=== PATIENT | male | born 1940 | race Caucasian/White ===

== ENCOUNTER 2018-07-14 23:22 | Inpatient (IN) | payer OTHER ==
[~2018-07-14] VITALS: Ht 154.9 cm; Wt 58.1 kg
[~2018-07-14 23:22] MED LIST: BENA40TA54 PO; HYDR12.53 PO; OMEP20CA16 PO
[2018-07-15] VITALS (12 sets, daily range): BP systolic 101–144; BP diastolic 52–70; PULSE 70–93; RESP 18–20; Ht 154.9 cm; Wt 58.1 kg
[2018-07-15] MEDS ORDERED: ONDANSETRON 4 MG INJ IV STA (00:34)
[2018-07-15] MEDS ORDERED: hydrALAzine 20 MG INJ IV ONE (01:00)
[2018-07-15] MEDS ORDERED: ACETAMINOPHEN 325 MG TAB PO PRN (01:30)
[2018-07-15] MEDS ORDERED: ONDANSETRON 4 MG INJ IV PRN (01:30)
[2018-07-15] MEDS ORDERED: DOCUSATE SODIUM 100 MG CAP PO PRN (01:30)
[2018-07-15] MEDS ORDERED: BISACODYL (EC) 5 MG TAB PO PRN (01:30)
[2018-07-15] MEDS ORDERED: NACL 0.9% 3 ML SYG IV SCH (01:30)
[2018-07-15] MEDS ORDERED: hydrALAzine 20 MG INJ IV PRN (01:30)
--- NOTE | 2018-07-15 01:32 | HP ---
Date/Time of Note Date/Time of Note DATE: 07/15/18 TIME: 01:32 Assessment/Plan VTE Prophylaxis SCD applied (from Nsg): Yes Pharmacological prophylaxis: NA/contraindicated Pharm contraindication: low risk/ambulating Lines/Catheters IV Catheter Type (from Nrsg): Saline Lock Assessment/Plan Hospital Course This is a 77-year-old male being admitted to the telemetry floor for: #1 hypertensive urgency: Patient's blood pressure upon admission was in systolic above 200s. Patient was given IV hydralazine 20 mg x1 which did result in improvement of the blood pressure. Goal is to gradually lower the blood pressure over the next 24 hours. We will adjust patient's home medications, will discontinue his current combination pill. Given that the patient does appear to be mildly dehydrated we will discontinue his hydrochlorothiazide given its diuretic effect and initiate lisinopril 20 mg p.o. daily as well as Norvasc 5 mg p.o. daily. Will monitor blood pressure. PRN hydralazine. CT scan of the head did not show any acute abnormalities. #2 Parkinson's disease: We will continue carbidopa/levodopa. Resume propranolol as indicated. #3 social work consult: We will need to assess patient's living conditions as well as ability to care for himself and administer medications to himself neo zurita #4 DVT GI prophylaxis: SCDs, no GI prophylaxis indicated Further treatment strategy will be implemented as per the clinical course. Result Diagram: 07/15/18 0004 07/15/18 0004 Results 24hrs Laboratory Tests Test 07/15/18 00:04 White Blood Count 9.7 Red Blood Count 4.67 L Hemoglobin 14.5 Hematocrit 42.2 Mean Corpuscular Volume 90.4 Mean Corpuscular Hemoglobin 31.0 Mean Corpuscular Hemoglobin Concent 34.4 Red Cell Distribution Width 13.2 Platelet Count 271 Mean Platelet Volume 9.2 Immature Granulocytes % 0.300 Neutrophils % 68.4 Lymphocytes % 20.9 Monocytes % 7.7 Eosinophils % 2.1 Basophils % 0.6 Nucleated Red Blood Cells % 0.0 Immature Granulocytes # 0.030 Neutrophils # 6.7 Lymphocytes # 2.0 Monocytes # 0.8 Eosinophils # 0.2 Basophils # 0.1 Nucleated Red Blood Cells # 0.0 Sodium Level 138 Potassium Level 3.6 Chloride Level 97 Carbon Dioxide Level 28 Anion Gap 13 Blood Urea Nitrogen 19 Creatinine 0.89 Est Glomerular Filtrat Rate mL/min Glucose Level 99 Calcium Level 9.7 Total Bilirubin 0.7 Direct Bilirubin 0.00 Indirect Bilirubin 0.7 Aspartate Amino Transf (AST/SGOT) 25 Alanine Aminotransferase (ALT/SGPT) 8 L Alkaline Phosphatase 102 Troponin I < 0.012 B-Type Natriuretic Peptide 219 Total Protein 8.8 H Albumin 4.8 Globulin 4.00 H Albumin/Globulin Ratio 1.20 HPI/ROS Admit Date/Time Admit Date/Time Hx of Present Illness Chief complaint: Headaches, blurriness times 1 month This is a 77-year-old male with a past medical history of hypertension and Parkinson's who presented to the emergency department with headaches and elevated blood pressure. Patient reports that he is at elevated blood pressure for the last 1 month approximately. He checks his blood pressure sometimes at home and has noticed it above 180 systolic. He also reports that over the last week he has had started noticing headaches and he also reports some blurry vision. He lives with a friend. He does not normally check his blood pressure on a regular basis. He did have a follow-up appointment with his primary care doctor in the coming days however because of his headache he came into the emergency department. He does report that he has not been eating well or drinking well lately either. He denies any focal neurological deficits. He denies any speech impediment. Allergies: NKDA Medications: See CHELSEA ROSAS Const: As per HPI Eyes : No pain discharge or redness or change in visual acuity ENT: No pain, sore throat, congestion, congestion, dysphagia or discharge Respiratory: No shortness of breath, cough, sputum, wheezing, or pleuritic pain Cardiovascular: No chest pain, palpitation, PND, or edema GI : no change in appetite, abdominal pain, nausea, vomiting, diarrhea, constipation, or change in the color his stool Genitourinary: No dysuria, hematuria, flank pain , discharge or CVA tenderness Musculoskeletal: No joint pain, back pain, neck pain, restricted range of motion in neck or joints Skin: No rash, bruising or hives Neuro: As per HPI Endocrine: No polyuria, polydipsia, temperature intolerance Psych: No hallucination, depression, anxiety or suicidal ideation PMH/Family/Social Past Medical History Hypertension, Parkinson's Coded Allergies: No Known Drug Allergy (Unverified Allergy, Mild, 07/15/18) Past Surgical History Past Surgical Hx: no surgical history Family History Significant Family History: no pertinent family hx Social History Alcohol Use: none Smoking Status: Never smoker Drug Use: none Exam/Review of Systems Vital Signs Vitals Vital Signs Date Temp Pulse Resp B/P (MAP) Pulse Ox O2 O2 Flow FiO2 Time Delivery Rate 07/15/18 97.0 85 16 112/66 97 Room Air 01:31 (81) Exam Exam General: Patient is a pleasant male currently lying in bed in no acute distress, mildly disheveled appearing HEENT: Atraumatic, normocephalic. The pupils are equal, round and reactive. Extraocular motor are intact, mucous membranes dry Neck: Supple with full range of motion. No rigidity or meningismus Chest: Nontender Lungs: Clear to auscultation bilaterally no crackles rales or wheezing Heart: Normal S1-S2, Regular rhythm and rate. No murmur, S3, or S4 Abdomen: Soft , nontender, nondistended , bowel sounds are present. No guarding no rebound tenderness , No masses or organomegaly. No costovertebral temporal angle mass Extremities: Normal to inspection, no edema no cyanosis Neurologic: Normal mental status, speech normal, cranial nerves II through XII are intact, motor and sensory are intact, slow steady gait Additional Comments PROCEDURE: CT BRAIN WITHOUT CONTRAST CLINICAL INDICATION: 77-year-old male with headaches. TECHNIQUE: The study was performed utilizing [employer] VCT 64-slice CT scanner. Direct axial sections were obtained from the foramen magnum to the vertex without the use of intravenous contrast material. Sagittal and coronal reformations were obtained. One or more of the following dose reduction t echniques were utilized: automated exposure control, adjustment of the mA and/or kV according to patient's size or use of iterative reconstruction technique. DICOM images are available. The images were viewed on a PACS workstation. CTD/vol = 39.64 mGy; Total Exam DLP = 634.23 mGy.cm. COMPARISON: None. FINDINGS: There is mild degree of diffuse cortical and central atrophy with compensatory ventricular enlargement. There is no evidence for mass effect or midline shift. There are periventricular areas of decreased density consistent with microangiopathic ischemic changes. There is no evidence for acute intra or extra-axial blood. Calcifications are seen within the intracranial carotid arteries bilaterally. The bony calvarium is intact. There is minimal mucosal thickening within the ethmoid air cells bilaterally and partially visualized inferior maxillary sinuses. No air-fluid levels are noted. The mastoid air cells without significant soft tissue. IMPRESSION: 1. Mild diffuse atrophy. 2. Microangiopathic ischemic changes. 3. Vascular calcifications. 4. Minimal mucosal thickening ethmoid air cells and partially visualized inferior maxillary sinuses. .León Portillo MD, Date Time Electronically viewed and signed by .León Portillo MD, MD on 07/15/2018 01:13 .M/ CC: VALERY BRISCOE [phone] PROCEDURE: CHEST - 1 VIEW CLINICAL INDICATION: 77-year-old male with chest pain. TECHNIQUE: A single frontal AP portable view of the chest was performed. The images were reviewed on a PACS workstation. COMPARISON: CR CHEST 08/06/2012; CR CHEST 05/20/2009 FINDINGS: The cardiomediastinal silhouette is mildly enlarged. The thoracic aortic arch is calcified. There is a shallow inspiration. There is patchy right lower lung zone infiltrate. There is no evidence for congestive heart failure. There is no e vidence for pneumothorax. The osseous structures are intact. IMPRESSION: 1. Mild cardiomegaly. 2. Calcified thoracic aortic arch. 3. Patchy right lower lung zone infiltrate. .León Portillo MD, MD Date Time Electronically viewed and signed by .León Portillo MD, MD on 07/15/2018 01:10 .M/ CC: VALERY BRISCOE [id number] DARNELL GIFFORD Jul 15, 2018 01:32
--- NOTE | 2018-07-15 01:45 | ERD ---
ER Documentation Chief Complaint Chief Complaint HTN, BURGOS, WEAK X'S 10 DAYS HPI Is a 77-year-old male complains of hypertension headache weakness times 10 days. Pain is mild to moderate intensity. Patient says the headache is gone some mild blurry vision transiently. She does not have blurry vision at this time. Denies any focal neurologic complaints. Denies any other current issues. ROS All systems reviewed and are negative except as per history of present illness. Medications Home Meds Reported Medications Omeprazole* (Omeprazole*) 20 Mg Capsule.dr, PO Q12 08/06/12 Hydrochlorothiazide (Hydrochlorothiazide) 12.5 Mg Capsule, PO DAILY 08/06/12 Benazepril Hcl* (Lotensin*) 40 Mg Tablet, PO DAILY 08/06/12 Allergies Allergies: Coded Allergies: No Known Drug Allergy (Verified Allergy, Mild, 08/06/12) PMhx/Soc History of Surgery: Yes (HERNIA) Hx Neurological Disorder: No Hx Respiratory Disorders: No Hx Cardiac Disorders: Yes (HTN) Hx Miscellaneous Medical Probl: Yes (MESA GRANDE) Hx Alcohol Use: No Hx Substance Use: No Hx Tobacco Use: No Smoking Status: Never smoker Physical Exam Vitals Vital Signs Date Temp Pulse Resp B/P (MAP) Pulse Ox O2 O2 Flow FiO2 Time Delivery Rate 07/15/18 97.0 85 16 112/66 97 Room Air 01:31 (81) 07/15/18 97.0 66 16 161/74 97 Room Air 00:48 (103) 07/15/18 97.0 69 16 191/97 97 Room Air 00:06 (128) 07/14/18 97.0 71 20 232/107 97 23:24 (148) Physical Exam Const: No acute distress Head: Atraumatic Eyes: Normal Conjunctiva ENT: Normal External Ears, Nose and Mouth. Neck: Full range of motion. No meningismus. Resp: Clear to auscultation bilaterally Cardio: Regular rate and rhythm, no murmurs Abd: Soft, non tender, non distended. Normal bowel sounds Skin: No petechiae or rashes Back: No midline or flank tenderness Ext: No cyanosis, or edema Neur: Awake and alert Psych: Normal Mood and Affect Result Diagram: 07/15/18 0004 07/15/18 0004 Results 24 hrs Laboratory Tests Test 07/15/18 00:04 White Blood Count 9.7 10^3/ul Red Blood Count 4.67 10^6/ul Hemoglobin 14.5 g/dl Hematocrit 42.2 % Mean Corpuscular Volume 90.4 fl Mean Corpuscular Hemoglobin 31.0 pg Mean Corpuscular Hemoglobin Concent 34.4 g/dl Red Cell Distribution Width 13.2 % Platelet Count 271 10^3/UL Mean Platelet Volume 9.2 fl Immature Granulocytes % 0.300 % Neutrophils % 68.4 % Lymphocytes % 20.9 % Monocytes % 7.7 % Eosinophils % 2.1 % Basophils % 0.6 % Nucleated Red Blood Cells % 0.0 /100WBC Immature Granulocytes # 0.030 10^3/ul Neutrophils # 6.7 10^3/ul Lymphocytes # 2.0 10^3/ul Monocytes # 0.8 10^3/ul Eosinophils # 0.2 10^3/ul Basophils # 0.1 10^3/ul Nucleated Red Blood Cells # 0.0 10^3/ul Sodium Level 138 mmol/L Potassium Level 3.6 mmol/L Chloride Level 97 mmol/L Carbon Dioxide Level 28 mmol/L Anion Gap 13 Blood Urea Nitrogen 19 mg/dl Creatinine 0.89 mg/dl Est Glomerular Filtrat Rate mL/min mL/min Glucose Level 99 mg/dl Calcium Level 9.7 mg/dl Total Bilirubin 0.7 mg/dl Direct Bilirubin 0.00 mg/dl Indirect Bilirubin 0.7 mg/dl Aspartate Amino Transf (AST/SGOT) 25 IU/L Alanine Aminotransferase (ALT/SGPT) 8 IU/L Alkaline Phosphatase 102 IU/L Troponin I < 0.012 ng/ml B-Type Natriuretic Peptide 219 PG/ML Total Protein 8.8 g/dl Albumin 4.8 g/dl Globulin 4.00 g/dl Albumin/Globulin Ratio 1.20 Current Medications Medications Dose Sig/Radha Start Time Status Last (Trade) Ordered Route PRN Stop Time Admin Dose Reason Admin Hydralazine 20 mg ONCE ONCE 07/15/18 DC 07/15/18 HCl IV 01:00 00:41 (Apresoline) 07/15/18 01:01 Ondansetron 4 mg ONCE STAT 07/15/18 DC 07/15/18 HCl (Zofran IV 00:34 00:40 Inj) 07/15/18 00:35 IV Flush 3 ml PER 07/15/18 (NS 3 ml) PROTOCOL IV 01:30 Ondansetron 4 mg Q6H PRN 07/15/18 HCl (Zofran IV 01:30 Inj) NAUSEA/VOMITI NG 650 mg Q6H PRN 07/15/18 Acetaminophen PO .PAIN 1-3 01:30 (Tylenol OR TEMP Tab) Docusate 100 mg Q12H PRN 07/15/18 Sodium PO 01:30 (Colace) .CONSTIPATION Bisacodyl 5 mg DAILY PRN 07/15/18 (Dulcolax) PO 01:30 .CONSTIPATION Hydralazine 10 mg Q4H PRN 07/15/18 HCl IV ELEVATED 01:30 (Apresoline) BLOOD PRESSURE Procedures/MDM EKG: Rate/Rhythm: [Normal Sinus Rhythm] QRS, ST, T-waves: [No changes consistent w/ acute ischemia] Impression: [No evidence of ischemia or arrhythmia] Chest X-ray 1V Interpreted by me: Soft Tissue: No acute abnormalities Bones: No acute abnormalities Mediastinum/Cardiac Silhouette/Lungs: [No acute abnormalities] Medical decision making: Patient's symptoms are concerning for cardiac cause will require inpatient workup and continuous monitoring. Further w/u for ischemia, arrhythmia, PE or dissection will be deferred to the inpatient team. Accepting Care Team: Current data and ongoing care discussed. Time: 1:45 AM Primary Provider: Dr. Lin Consulting: Deferred to inpatient team Outstanding Data: none Departure Diagnosis: Primary Impression: Hypertensive emergency Condition: Serious VALERY BRISCOE ArceliaGoldie Jul 15, 2018 01:45
[2018-07-15] MEDS ORDERED: CARB1TAB34 PO (02:43)
[2018-07-15] MEDS ORDERED: PRIM50TA38 PO ×2 (02:43→15:34)
[2018-07-15] MEDS ORDERED: ZOLP10TA5 PO (02:43)
[2018-07-15] MEDS ORDERED: PROP160C PO (02:43)
[2018-07-15] MEDS ORDERED: ENAL1TAB PO (02:43)
[2018-07-15] MEDS ORDERED: ERGO500013 PO (02:43)
[2018-07-15] MEDS ORDERED: ZOLPIDEM 5 MG TAB PO PRN (03:30)
[2018-07-15] MEDS ORDERED: POTASSIUM CHLORIDE (SR) 20 MEQ TAB PO STA (05:42)
[2018-07-15] MEDS ORDERED: SOD CHLORIDE 0.9% 500 ML IV ONE (06:00)
[2018-07-15] MEDS: CARBIDOPA/LEVODOPA (25/100) TAB PO SCH ×3 (10:03→21:03)
--- NOTE | 2018-07-15 15:40 | PDOCDIS ---
Discharge Instructions CONDITION [id number] Patient Condition: [id number] Stable HOME CARE INSTRUCTIONS: [id number] Diet Instructions: [id number] Low Fat /Cholesterol ACTIVITY: [id number] Activity Restrictions: [id number] Slowly Increase Activity Rest between Activity FOLLOW UP/APPOINTMENTS Follow-up Plan See your PCP in the next 1 week We will be sending a nurse to your home to help you with your blood pressure management. Consulte a vasques PCP en la prxima 1 semana Le mandaremos haile enfermera a vasques casa para ayudarle con vasques control de la presin arterial. GRAY BEDOLLA Jul 15, 2018 15:40
[2018-07-15] MEDS ORDERED: HYDROCHLOROTHIAZIDE 25 MG TAB PO SCH ×2 (16:00→20:00)
[2018-07-15] MEDS ORDERED: LISINOPRIL 20 MG TAB PO SCH ×2 (16:00→20:00)
[2018-07-15] MEDS ORDERED: AMLODIPINE 5 MG TAB PO SCH (16:00)
[2018-07-15] MEDS ORDERED: LISI-471 PO (16:13)
--- NOTE | 2018-07-15 16:15 | DS ---
Date/Time of Note Date/Time of Note DATE: 07/15/18 TIME: 16:14 Discharge Summary Admission/Discharge Info Admit Date/Time Jul 15, 2018 at 01:26 Discharge Date/Time Discharge Diagnosis 1. Hypertensive urgency: Resolved 2. Headache secondary to #1: Resolved. 3 Chronic Parkinson's: Stable Patient Condition: Stable Hospital Course 77-year-old male who had come in with concerns of headache and elevated blood pressure was admitted for blood pressure control and symptom control. He was essentially just admitted and resumed on antihypertensives and has done well and at this time headache is resolved and patient is stable to be discharged. I spoke with his insurance claim auditor to arrange for home health for nursing to help with blood pressure management and control patient is also to see his primary care doctor within the next week to ensure that his blood pressure continues to stay well. A CT scan of the head was also done that showed no acute pathology, no further workup was required as patient symptoms resolved with improvement in his blood pressure. He was seen by the social media designer, no social concerns were identified, he is stable for discharge . Home Meds Active Scripts Lisinopril* (Lisinopril*) 20 Mg Tablet, 20 MG PO DAILY, #30 TAB Prov:GRAY BEDOLLA. 07/15/18 Primidone* (Mysoline*) 50 Mg Tablet, 50 MG PO QHS, #30 TAB Prov:GRAY BEDOLLA. 07/15/18 Reported Medications Zolpidem Tartrate* (Zolpidem Tartrate*) 10 Mg Tablet, 10 MG PO QHS PRN for INSOMNIA, #30 TAB 07/15/18 Propranolol Hcl* (Propranolol Hcl* LA) 160 Mg Cap.sa.24h, 160 MG PO QAM for 30 Days, #30 07/15/18 Carbidopa/Levodopa (Carbidopa-Levodopa 25-100 Tab) 1 Each Tablet, 1 TAB PO TID TAKE 1 TABLET BY MOUTH AT 9AM; 1PM; 5PM 30 MINUTES BEFORE MEAL. 07/15/18 Ergocalciferol (Vitamin D2) (VITAMIN D2) 50,000 Unit Capsule, 1 TAB PO Q7D for QFRIDAY for 28 Days TAKEN EVERY Friday07/15/18 Omeprazole* (Omeprazole*) 20 Mg Capsule.dr, PO Q12 08/06/12 Discontinued Reported Medications Primidone* (Mysoline*) 50 Mg Tablet, 50 MG PO QHS TAKE 1 TABLET BY MOUTH FOR 2 WEEKS AT BEDTIME; THEN TWICE DAILY FOR ANOTHER 2 WEEKS 07/15/18 Enalapril/Hydrochlorothiazide (Enalapril-Hctz 10-25 mg Tablet) 1 Each Tablet, 1 TAB PO DAILY for 30 Days, #30 07/15/18 Hydrochlorothiazide (Hydrochlorothiazide) 12.5 Mg Capsule, PO DAILY 08/06/12 Benazepril Hcl* (Lotensin*) 40 Mg Tablet, PO DAILY 08/06/12 Follow-up Plan See your PCP in the next 1 week We will be sending a nurse to your home to help you with your blood pressure management. Consulte a vasques PCP en la prxima 1 semana Le mandaremos haile enfermera a vasques casa para ayudarle con vasques control de la presin arterial. Primary Care Provider Not On Staff Doctor Time spent on discharge: < 30 minutes Pending Labs Laboratory Tests Test 07/15/18 00:04 White Blood Count 9.7 10^3/ul (4.8-10.8) Red Blood Count 4.67 10^6/ul (4.70-6.10) Hemoglobin 14.5 g/dl (14.0-18.0) Hematocrit 42.2 % (42.0-52.0) Mean Corpuscular Volume 90.4 fl (82.0-101.0) Mean Corpuscular Hemoglobin 31.0 pg (29.0-33.0) Mean Corpuscular Hemoglobin Concent 34.4 g/dl (32.0-37.0) Red Cell Distribution Width 13.2 % (11.5-14.5) Platelet Count 271 10^3/UL (140-415) Mean Platelet Volume 9.2 fl (7.4-10.4) Immature Granulocytes % 0.300 % (0.001-0.429) Neutrophils % 68.4 % (39.0-77.0) Lymphocytes % 20.9 % (15.0-51.0) Monocytes % 7.7 % (0.0-11.0) Eosinophils % 2.1 % (0.0-7.0) Basophils % 0.6 % (0.0-2.0) Nucleated Red Blood Cells % 0.0 /100WBC (0.0-0.0) Immature Granulocytes # 0.030 10^3/ul (0.0-0.031) Neutrophils # 6.7 10^3/ul (1.6-7.5) Lymphocytes # 2.0 10^3/ul (0.8-2.9) Monocytes # 0.8 10^3/ul (0.3-0.9) Eosinophils # 0.2 10^3/ul (0.0-0.5) Basophils # 0.1 10^3/ul (0.0-0.1) Nucleated Red Blood Cells # 0.0 10^3/ul (0.0-0.0) Sodium Level 138 mmol/L (135-144) Potassium Level 3.6 mmol/L (3.5-5.1) Chloride Level 97 mmol/L (97-110) Carbon Dioxide Level 28 mmol/L (21-31) Anion Gap 13 (5-13) Blood Urea Nitrogen 19 mg/dl (7-20) Creatinine 0.89 mg/dl (0.61-1.24) Est Glomerular Filtrat Rate mL/min mL/min (>60) Glucose Level 99 mg/dl (70-220) Calcium Level 9.7 mg/dl (8.4-10.2) Total Bilirubin 0.7 mg/dl (0.2-1.3) Direct Bilirubin 0.00 mg/dl (0.00-0.20) Indirect Bilirubin 0.7 mg/dl (0-1.1) Aspartate Amino Transf (AST/SGOT) 25 IU/L (15-46) Alanine Aminotransferase (ALT/SGPT) 8 IU/L (13-69) Alkaline Phosphatase 102 IU/L (42-121) Troponin I < 0.012 ng/ml (0.000-0.120) B-Type Natriuretic Peptide 219 PG/ML (0-450) Total Protein 8.8 g/dl (6.1-8.1) Albumin 4.8 g/dl (3.3-4.9) Globulin 4.00 g/dl (1.3-3.2) Albumin/Globulin Ratio 1.20 GRAY BEDOLLA Jul 15, 2018 16:15
[2018-07-15] MEDS ORDERED: PRIMIDONE 50 MG TAB PO SCH (21:00)
== END 2018-07-15 21:00 | disposition home health service (06) | DRG 305 ==
LOC: E/R 23:22 → TEL 07-15 01:26 → CANRESERV 07-15 01:58
PROVIDERS: ADMIT Family Medicine; ATTEND Family Medicine
DX: I16.1 Hypertensive emergency (principal); R51 Headache; G20 Parkinson's disease
CPT/HCPCS: 36415; 70450; 71045; 80053; 83880; 84484; 85025; 93005; 96374; 96375; J0360; J2405; J7040

== ENCOUNTER 2018-07-26 21:23 | Emergency (ER) | payer OTHER ==
[~2018-07-26] VITALS: Ht 160 cm; Wt 57.0 kg
[~2018-07-26 21:23] MED LIST changes: -BENA40TA54 PO; +CARB1TAB34 PO; +ERGO500013 PO; -HYDR12.53 PO; +LISI-471 PO; +PRIM50TA38 PO; +PROP160C PO; +ZOLP10TA5 PO
[2018-07-26 21:37] VITALS: Ht 160 cm; Wt 57.0 kg
--- NOTE | 2018-07-26 22:36 | ERD ---
ER Documentation Chief Complaint Chief Complaint L jaw pain to left arm x 1 wk only at nts per pt; denies CP; AAOx4 HPI This is a 77-year-old male with a history of hypertension, who presents with left jaw pain rating to left arm this is been ongoing for about the last 2 weeks, intermittently.. It is not associated with chest pain. However it is associated with a headache. Headache is left-sided, he feels numbness over his jaw bilaterally, however he has no weakness, he has no speech changes, no dysphasia, the patient was recently admitted earlier this month, for hypertensive urgency, he had a headache at that time, his work-up was overall unremarkable, and he was discharged his blood pressure control. ROS All systems reviewed and are negative except as per history of present illness. Medications Home Meds Active Scripts Lisinopril* (Lisinopril*) 20 Mg Tablet, 20 MG PO DAILY, #30 TAB Prov:GRAY BEDOLLA . 07/15/18 Primidone* (Mysoline*) 50 Mg Tablet, 50 MG PO QHS, #30 TAB Prov:GRAY BEDOLLA . 07/15/18 Reported Medications Zolpidem Tartrate* (Zolpidem Tartrate*) 10 Mg Tablet, 10 MG PO QHS PRN for INSOMNIA, #30 TAB 07/15/18 Propranolol Hcl* (Propranolol Hcl* LA) 160 Mg Cap.sa.24h, 160 MG PO QAM for 30 Days, #30 07/15/18 Carbidopa/Levodopa (Carbidopa-Levodopa 25-100 Tab) 1 Each Tablet, 1 TAB PO TID TAKE 1 TABLET BY MOUTH AT 9AM; 1PM; 5PM 30 MINUTES BEFORE MEAL. 07/15/18 Ergocalciferol (Vitamin D2) (VITAMIN D2) 50,000 Unit Capsule, 1 TAB PO Q7D for QFRIDAY for 28 Days TAKEN EVERY Friday07/15/18 Omeprazole* (Omeprazole*) 20 Mg Capsule.dr, PO Q12 08/06/12 Allergies Allergies: Coded Allergies: No Known Drug Allergy (Unverified Allergy, Mild, 07/15/18) PMhx/Soc History of Surgery: Yes (hernia) Anesthesia Reaction: No Hx Neurological Disorder: No Hx Respiratory Disorders: No Hx Cardiac Disorders: Yes (HTN) Hx Psychiatric Problems: No Hx Miscellaneous Medical Probl: No Hx Alcohol Use: No Hx Substance Use: No Hx Tobacco Use: No Physical Exam Vitals Vital Signs Date Temp Pulse Resp B/P (MAP) Pulse Ox O2 O2 Flow FiO2 Time Delivery Rate 07/26/18 83 19 152/71 98 Room Air 23:55 (98) 07/26/18 98.0 68 18 198/89 97 21:37 (125) Physical Exam Const: Well-appearing, well-developed well-nourished, in no acute Head: Atraumatic Eyes: Normal Conjunctiva ENT: Normal External Ears, Nose and Mouth. Neck: Full range of motion. No meningismus. Resp: Clear to auscultation bilaterally Cardio: Regular rate and rhythm, no murmurs Abd: Soft, non tender, non distended, no rebound or guarding. Normal bowel sounds Skin: No petechiae or rashes Back: No midline or flank tenderness Ext: No cyanosis, or edema Neur: Awake and alert, strength 5 out of 5 in all extremities, there is no cerebral ataxia, cranial nerves II through XII are intact Psych: Normal Mood and Affect Result Diagram: 07/26/18223907/26/182239 Results 24 hrs Laboratory Tests Test 07/26/18 22:40 White Blood Count 6.9 10^3/ul Red Blood Count 4.33 10^6/ul Hemoglobin 13.6 g/dl Hematocrit 39.3 % Mean Corpuscular Volume 90.8 fl Mean Corpuscular Hemoglobin 31.4 pg Mean Corpuscular Hemoglobin Concent 34.6 g/dl Red Cell Distribution Width 13.1 % Platelet Count 230 10^3/UL Mean Platelet Volume 9.3 fl Immature Granulocytes % 0.300 % Neutrophils % 54.6 % Lymphocytes % 29.0 % Monocytes % 12.6 % Eosinophils % 2.6 % Basophils % 0.9 % Nucleated Red Blood Cells % 0.0 /100WBC Immature Granulocytes # 0.020 10^3/ul Neutrophils # 3.8 10^3/ul Lymphocytes # 2.0 10^3/ul Monocytes # 0.9 10^3/ul Eosinophils # 0.2 10^3/ul Basophils # 0.1 10^3/ul Nucleated Red Blood Cells # 0.0 10^3/ul Prothrombin Time 14.9 Sec Prothrombin Time Ratio 1.2 INR International Normalized Ratio 1.16 Activated Partial Thromboplast Time 29.1 Sec Urine Color YELLOW Urine Clarity CLEAR Urine pH 6.0 Urine Specific [place] 1.011 Urine Ketones NEGATIVE mg/dL Urine Nitrite NEGATIVE mg/dL Urine Bilirubin NEGATIVE mg/dL Urine Urobilinogen NEGATIVE mg/dL Urine Leukocyte Esterase NEGATIVE Sidra/ul Urine Microscopic RBC 2 /HPF Urine Microscopic WBC 1 /HPF Urine Hemoglobin 1+ mg/dL Urine Glucose NEGATIVE mg/dL Urine Total Protein NEGATIVE mg/dl Sodium Level 137 mmol/L Potassium Level 3.9 mmol/L Chloride Level 97 mmol/L Carbon Dioxide Level 31 mmol/L Anion Gap 9 Blood Urea Nitrogen 16 mg/dl Creatinine 0.82 mg/dl Est Glomerular Filtrat Rate mL/min mL/min Glucose Level 101 mg/dl Hemoglobin A1c 5.5 % Calcium Level 9.7 mg/dl Total Bilirubin 0.4 mg/dl Direct Bilirubin 0.00 mg/dl Indirect Bilirubin 0.4 mg/dl Aspartate Amino Transf (AST/SGOT) 26 IU/L Alanine Aminotransferase (ALT/SGPT) 11 IU/L Alkaline Phosphatase 82 IU/L Troponin I < 0.012 ng/ml Total Protein 8.0 g/dl Albumin 4.5 g/dl Globulin 3.50 g/dl Albumin/Globulin Ratio 1.28 Triglycerides Level 59 mg/dl Cholesterol Level 161 mg/dl LDL Cholesterol, Calculated 116 mg/dl HDL Cholesterol 33 mg/dl Cholesterol/HDL Ratio 4.8 RATIO Urine Opiates Screen Negative Urine Barbiturates Positive Urine Amphetamines Screen Negative Urine Benzodiazepines Screen Negative Urine Cocaine Screen Negative Urine Cannabinoids Negative Procedures/MDM This is a 77-year-old male who presents for evaluation of headache associated with left arm pain, and bilateral numbness over his lower jaw. My consideration that this could be an anginal equivalent went, however the patient's EKG shows a left ventricular hypertrophy with no acute changes from previous, the patient clearly denies chest, cardiac work-up was initiated. Additionally considered TIA, however the foci of his symptoms did not appear to be consistent with an acute stroke, they are bilateral, with lower jaw numbness, associated with a headache. Given his age, CT Noncon and CT angiogram of the head and neck were performed to evaluate for signs of stenosis or carotid dissection, these were negative, I discussed the findings with patient, and shared decision-making was made to follow-up as an outpatient, for further neurologic evaluation as needed. At this point I do not suspect acute CVA, at discharge the patient was in no ac allan distress. EKG: Rate/Rhythm: Normal Sinus Rhythm QRS, ST, T-waves: No changes consistent w/ acute ischemia Impression: No evidence of ischemia or arrhythmia Departure Diagnosis: Primary Impression: Jaw pain Condition: Stable CAYDEN TOLENTINO MD Jul 26, 2018 22:35
[2018-07-27] MEDS ORDERED: SOD CHLORIDE 0.9% 100 ML ONE (00:11)
[2018-07-27] MEDS ORDERED: IOHEXOL 300MG/ML 150 ML BTL ONE (00:11)
[2018-07-27 00:40] VITALS: BP 160/83; PULSE 81; RESP 18
== END 2018-07-27 00:50 | disposition home or self-care (01) ==
LOC: E/R 21:23
DX: R68.84 Jaw pain (principal); R51 Headache; I10 Essential (primary) hypertension
CPT/HCPCS: 70450; 70496; 70498; 71045; 80053; 80061; 80307; 81001; 83036; 84484; 85025; 85610; 85730; 93005; Q9967; 36415

== ENCOUNTER 2018-10-06 20:11 | Emergency (ER) | payer OTHER ==
[~2018-10-06] VITALS: Ht 157.5 cm; Wt 54.2 kg
[2018-10-06 20:16] VITALS: Ht 157.5 cm; Wt 54.2 kg
--- NOTE | 2018-10-06 22:54 | ERD ---
ER Documentation Chief Complaint Chief Complaint AP X'S 2 MONTH HPI The patient is a 78-year-old male, presenting to the ER because of chronic abdominal pain with constipation for more than 2 months, worse for the last 2 weeks, complains of nausea but no vomiting, denies fever, chills, neck pain, chest pain, dyspnea, denies dysuria, diarrhea. He does not smoke nor drink Past medical history: Parkinson disease, hypertension Past surgical history: Bilateral inguinal herniorrhaphy ROS All systems reviewed and are negative except as per history of present illness. Medications Home Meds Active Scripts Lisinopril* (Lisinopril*) 20 Mg Tablet, 20 MG PO DAILY, #30 TAB Prov:ANA BEDOLLAEVERARDO M. 07/15/18 Primidone* (Mysoline*) 50 Mg Tablet, 50 MG PO QHS, #30 TAB Prov:ANA BEDOLLAEVERARDO M. 07/15/18 Reported Medications Zolpidem Tartrate* (Zolpidem Tartrate*) 10 Mg Tablet, 10 MG PO QHS PRN for INSOMNIA, #30 TAB 07/15/18 Propranolol Hcl* (Propranolol Hcl* LA) 160 Mg Cap.sa.24h, 160 MG PO QAM for 30 Days, #30 07/15/18 Carbidopa/Levodopa (Carbidopa-Levodopa 25-100 Tab) 1 Each Tablet, 1 TAB PO TID TAKE 1 TABLET BY MOUTH AT 9AM; 1PM; 5PM 30 MINUTES BEFORE MEAL. 07/15/18 Ergocalciferol (Vitamin D2) (VITAMIN D2) 50,000 Unit Capsule, 1 TAB PO Q7D for QFRIDAY for 28 Days TAKEN EVERY Friday07/15/18 Omeprazole* (Omeprazole*) 20 Mg Capsule.dr, PO Q12 08/06/12 Allergies Allergies: Coded Allergies: No Known Drug Allergy (Unverified Allergy, Mild, 07/15/18) PMhx/Soc History of Surgery: Yes (hernia) Anesthesia Reaction: No Hx Neurological Disorder: No Hx Respiratory Disorders: No Hx Cardiac Disorders: Yes (HTN) Hx Psychiatric Problems: No Hx Miscellaneous Medical Probl: No Hx Alcohol Use: No Hx Substance Use: No Hx Tobacco Use: No Physical Exam Vitals Vital Signs Date Temp Pulse Resp B/P (MAP) Pulse Ox O2 O2 Flow FiO2 Time Delivery Rate 10/06/18 68 24 163/101 97 Room Air 22:47 (121) 10/06/18 97.0 61 18 146/71 98 20:16 (96) Physical Exam Const: No acute distress. Head: Atraumatic. Eyes: Normal Conjunctiva. ENT: Normal External Ears, Nose and Mouth. Neck: Full range of motion. No meningismus. Resp: Clear to auscultation bilaterally. Cardio: Regular rate and rhythm. Abd: Soft, non distended, normal bowel sounds, vague/diffuse abdominal discomfort, no rigidity/rebound/CVA tenderness Skin: No petechiae or rashes. Back: No midline or flank tenderness. Ext: No cyanosis, or edema. Neur: Awake and alert. No focal deficit Psych: Normal Mood and Affect. Result Diagram: 10/06/182 10/06/18 2302 Results 24 hrs Laboratory Tests Test 10/06/18 23:02 10/06/18 23:14 White Blood Count 8.3 10^3/ul Red Blood Count 4.43 10^6/ul Hemoglobin 14.2 g/dl Hematocrit 41.2 % Mean Corpuscular Volume 93.0 fl Mean Corpuscular Hemoglobin 32.1 pg Mean Corpuscular Hemoglobin Concent 34.5 g/dl Red Cell Distribution Width 13.4 % Platelet Count 249 10^3/UL Mean Platelet Volume 9.1 fl Immature Granulocytes % 0.400 % Neutrophils % 59.3 % Lymphocytes % 28.1 % Monocytes % 8.6 % Eosinophils % 2.6 % Basophils % 1.0 % Nucleated Red Blood Cells % 0.0 /100WBC Immature Granulocytes # 0.030 10^3/ul Neutrophils # 5.0 10^3/ul Lymphocytes # 2.3 10^3/ul Monocytes # 0.7 10^3/ul Eosinophils # 0.2 10^3/ul Basophils # 0.1 10^3/ul Nucleated Red Blood Cells # 0.0 10^3/ul Sodium Level 139 mmol/L Potassium Level 4.7 mmol/L Chloride Level 101 mmol/L Carbon Dioxide Level 27 mmol/L Anion Gap 11 Blood Urea Nitrogen 17 mg/dl Creatinine 0.96 mg/dl Est Glomerular Filtrat Rate mL/min mL/min Glucose Level 96 mg/dl Calcium Level 9.3 mg/dl Total Bilirubin 0.6 mg/dl Direct Bilirubin 0.00 mg/dl Indirect Bilirubin 0.6 mg/dl Aspartate Amino Transf (AST/SGOT) 35 IU/L Alanine Aminotransferase (ALT/SGPT) 35 IU/L Alkaline Phosphatase 75 IU/L Total Protein 8.6 g/dl Albumin 4.7 g/dl Globulin 3.90 g/dl Albumin/Globulin Ratio 1.20 Lipase 91 U/L Bedside Urine pH (LAB) 5.5 Bedside Urine Protein (LAB) Negative Bedside Urine Glucose (UA) Negative Bedside Urine Ketones (LAB) Trace Bedside Urine Blood Negative Bedside Urine Nitrite (LAB) Negative Bedside Urine Leukocyte Esterase (L Negative Current Medications Medications Dose Sig/Radha Start Time Status Last (Trade) Ordered Route PRN Stop Time Admin Dose Reason Admin Ondansetron 4 mg ONCE STAT 10/06/18 DC 10/06/18 HCl (Zofran IV 23:03 10/06/18 23:08 Inj) 23:04 Bisacodyl 10 mg ONCE ONCE 10/06/18 DC 10/06/18 (Dulcolax LA 23:30 10/06/18 23:09 Supp) 23:31 Ketorolac 15 mg ONCE STAT 10/06/18 DC 10/06/18 Tromethamine IV 23:04 10/06/18 23:09 (Toradol) 23:05 Procedures/MDM ?5d Patient Name Alexander Chatterjee Study Date 10/06/2018 11:54 PM Patient 1940 Accession No. [id number] Referring Physician Tom Cobos Patient Location E/R CLINICAL INDICATION: 78-year-old male. Abdominal pain. TECHNIQUE: CT scan of the abdomen and pelvis without contrast was performed on a multi-slice CT scanner utilizing axial imaging from the lung bases through the pubis symphysis. One or more the following does reduction techniques were utilized: Automated exposure control, adjustment of the mA/ or kV according to patient's size, or use of iterative reconstruction technique. Sagittal and coronal reformatted images were made. DICOM images are available for review. The CTDIvol is 5.77 mGy and the DLP is 313.49 mGycm. COMPARISON: None. FINDINGS: CT abdomen Visualized lung bases: Dependent changes posterior lower lobes. 3 mm pleural nodule anterior right middle lobe. 5 mm noncalcified pleural nodule lateral inferior left lower lobe. Liver: Limited evaluation without IV contrast. No gross lesion. Gallbladder and bile ducts: No calcified gallstones or pericholecystic fluid. No biliary ductal dilatation. Spleen: Normal appearance. Pancreas: Small pancreas. Calcifications in the pancreatic tail. No peripancreatic stranding or mass. Adrenal glands: Normal appearance. Kidneys: No hydronephrosis or calcified renal stones. 1.7 cm low attenuation mass with peripheral curvilinear calcification anterior lower pole right kidney. Exophytic cyst posterior left kidney. Vasculature: No abdominal aortic aneurysm. Calcified plaque present. Negative IVC. Lymph nodes: No adenopathy. GI: No evidence of obstruction or bowel wall thickening. Peritoneal cavity: No free fluid or free air. CT pelvis GI: Negative terminal ileum. The appendix is not identified. Negative sigmoid colon. Negative rectum. : Normal appearing distal ureters and urinary bladder. Prominent prostate gland. Left and right inguinal canal lipomas. 2 calcifications adjacent to or in the periphery of the right testicle. Peritoneal cavity: No free fluid or loculated fluid collections. Lymph nodes: No adenopathy. Osseous structures: No lytic or blastic lesions. IMPRESSION: 1. 1.7 cm low attenuation mass anterior lower pole right kidney with peripheral curvilinear calcification. This may represent a complex cyst. If this has not been worked up in the past, consider either a contrast-enhanced CT or MR to further evaluate this lesion. 2. Bilateral inguinal canal lipomas. 3. Small pancreatic tail calcifications, indicative of remote pancreatitis. RPTAT: [facility] Electronically Signed By: Xavier Bates M.d 10/07/2018 1:27:23 AM MEDICAL MAKING DECISION: The patient is a 78-year-old male, presenting with chronic abdominal pain, most likely due to chronic constipation, was treated with Dulcolax suppository for constipation, Zofran IV for nausea, Toradol 15 mg IV for pain with good response, is stable for outpatient follow-up The differential diagnoses considered include but are not limited to cholelithiasis, cholecystitis, choledocholithiasis, cholangitis, pancreatitis, hepatitis, gastritis, peptic ulcer disease, gastric ulcer, appendicitis, cystitis, diverticulitis, partial small bowel obstruction. Departure Diagnosis: Primary Impression: Abdominal pain Additional Impressions: Constipation Renal cyst, right Condition: Good Comments He was discharged with MiraLAX I discussed the findings with the patient. I advised the patient to follow-up with the primary physician in about 1-2 days reevaluation and referral to motor coach tour operator for right renal cyst, sooner if needed and return if any concern. Disclaimer: Inadvertent spelling and grammatical errors are likely due to EHR/dictation software use and do not reflect on the overall quality of patient care. Also, please note that the electronic time recorded on this note does not necessarily reflect the actual time of the patient encounter. TOM COBOS MD Oct 06, 2018 22:54
[2018-10-06] MEDS ORDERED: ONDANSETRON 4 MG INJ IV STA (23:03)
[2018-10-06] MEDS ORDERED: KETOROLAC 15 MG INJ IV STA (23:04)
[2018-10-06] MEDS ORDERED: BISACODYL 10 MG SUPP PR ONE (23:30)
[2018-10-07] MEDS ORDERED: POLY17PO6 PO (01:38)
[2018-10-07 01:55] VITALS: BP 128/69; PULSE 54; RESP 12
== END 2018-10-07 01:55 | disposition home or self-care (01) ==
LOC: E/R 20:11
DX: K59.00 Constipation, unspecified (principal); G20 Parkinson's disease; I10 Essential (primary) hypertension; N28.1 Cyst of kidney, acquired
CPT/HCPCS: 36415; 74176; 80053; 81003; 83690; 85025; 96374; 96375; 99285; J1885; J2405